=== PATIENT | male | born 1990 | race African-American/Black ===

== ENCOUNTER 2019-04-07 04:43 | Emergency (ER) | payer SELFPAY ==
[2019-04-07] MEDS ORDERED: KETOROLAC TROMETHAMINE 60 MG/2 ML SDV IM ONE (08:16)
--- NOTE | 2019-04-07 08:21 | ER Document Report ---
ED General - General Chief Complaint: Chest Wall Pain Stated Complaint: CHEST SWELLING Time Seen by Provider: 04/07/19 07:27 Mode of Arrival: Ambulatory TRAVEL OUTSIDE OF THE [place] IN LAST 30 DAYS: No - HPI Notes: The patient is a 28-year-old male presenting with a chief complaint of left anterolateral chest wall swelling and pain area Onset: Awakened with symptoms this morning. Duration: Swelling resolved. Pain persists. Quality: Sharp Location: Left anterolateral chest wall area Radiation: Left axilla Precipitating factors: Denies injury or unaccustomed activity. Relieving factors: Nothing tried at home. Severity: 2/10 intensity Pertinent prior history: Generally healthy male. Currently unemployed. Denies drug abuse. Denies skin rashes. No known history of cardiovascular disease. No personal nor family history of thromboembolic disease. No thromboembolic disease risk factors. Occasional cigarette smoker. No prior episodes of similar discomfort. - Related Data Allergies/Adverse Reactions: No Known Allergies Allergy (Unverified 04/07/19 05:11) Past Medical History - Social History Smoking Status: Current Every Day Smoker Chew tobacco use (# tins/day): No Frequency of alcohol use: Occasional Drug Abuse: None Family History: CAD Patient has suicidal ideation: No Patient has homicidal ideation: No Review of Systems - Review of Systems Notes: Constitutional: Negative for fever. HENT: Negative for sore throat. Eyes: Negative for visual changes. Cardiovascular: As per history of present illness Respiratory: Negative for shortness of breath. Gastrointestinal: Negative for abdominal pain, vomiting or diarrhea. Genitourinary: Negative for dysuria. Musculoskeletal: Negative for back pain. Skin: Negative for rash. Neurological: Negative for headaches, weakness or numbness. 10 point ROS negative except as marked above and in HPI. Physical Exam - Vital signs Vitals: Temp Pulse Resp BP Pulse Ox 98.2 F 104 H 17 150/90 H 100 04/07/19 04:48 04/07/19 04:48 04/07/19 04:48 04/07/19 04:48 04/07/19 04:48 Notes: GENERAL: Well-developed well-nourished appearing anxious and holding left anterior chest area. SKIN: Good turgor no rashes. HEAD: Normocephalic atraumatic. EYES: PERRLA. Conjunctivae and sclerae clear. EARS: CANALS AND TMS CLEAR. NOSE: CLEAR. MOUTH: Moist mucosa. Good dentition. No stridor or edema. No drooling. NECK: Supple. No masses or thyromegaly. No adenopathy. Carotids 2+ without bruits. No JVD. BACK: Symmetrical without tenderness. CHEST: Patient is exquisitely tender along left costochondral junctions. No visible swelling, crepitus, or redness. No palpable warmth. No palpable fluctuance. Respirations unlabored. Breath sounds clear and symmetrical. HEART: Regular rhythm. No murmur gallop or rub. ABDOMEN: Soft nontender without masses, organomegaly or rebound. Bowel sounds normally active. No bruits. GENITALIA: Deferred. EXTREMITIES: No edema. No calf tenderness. Cap refill less than 1.5 seconds. Dorsalis pedis and posterior tibial pulses 3+ and symmetrical. NEUROLOGICAL: GCS 15. Alert and oriented x3. Normal gait. Fluent speech. Cranial nerves II through XII intact. Sensorimotor and cerebellar normal. Normal tone. Psychiatric: Extremely anxious. Course - Re-evaluation Re-evalutation: I will obtain a chest x-ray PA and lateral to rule out pneumothorax. EKG has been reviewed and is remarkable for some movement artifact and sinus tachycardia with a rate of 102. Patient would appear to have a paucity of risk factors for coronary disease or thromboembolic disease. We will treat him symptomatically with ketorolac IM initially. 04/07/19 08:27 04/07/19 09:09 Chest x-ray reported as no active disease per radiologist. Images also reviewed by me. Pain is somewhat improved at this point. Anticipate discharge home. 04/07/19 09:38 Patient is pain-free at this time and appears stable for discharge with outpatient follow-up. - Vital Signs Vital signs: Temp Pulse Resp BP Pulse Ox 98.6 F 89 16 148/82 H 100 04/07/19 08:47 04/07/19 08:47 04/07/19 08:47 04/07/19 08:47 04/07/19 08:47 - Diagnostic Test Radiology reviewed: Image reviewed, Reports reviewed - EKG Interpretation by Me EKG shows normal: Sinus rhythm Rate: Tachycardia Discharge - Discharge Clinical Impression: Chest wall pain Condition: Stable Disposition: HOME, SELF-CARE Prescriptions: Cyclobenzaprine HCl [Flexeril 10 mg Tablet] 10 mg PO QHS PRN #15 tablet PRN Reason: Naproxen 500 mg PO BID PRN #14 tablet PRN Reason: Referrals: [facility] [Provider Group] - Follow up as needed
--- NOTE | 2019-04-07 08:40 | RADIOLOGY REPORT (SQ) ---
EXAM DESCRIPTION: CHEST 2 VIEWS COMPLETED DATE/TIME: 04/07/2019 8:29 am REASON FOR STUDY: CP COMPARISON: None. TECHNIQUE: Frontal and lateral radiographic views of the chest acquired. NUMBER OF VIEWS: Two view. LIMITATIONS: None. FINDINGS: LUNGS AND PLEURA: No opacities, masses or pneumothorax. No pleural effusion. MEDIASTINUM AND HILAR STRUCTURES: No masses or contour abnormalities. HEART AND VASCULAR STRUCTURES: Heart normal size. No evidence for failure. BONES: No acute findings. HARDWARE: None in the chest. OTHER: No other significant finding. IMPRESSION: NO SIGNIFICANT RADIOGRAPHIC FINDING IN THE CHEST. TECHNICAL DOCUMENTATION: JOB ID: [id number] [employer]- All Rights Reserved Reading location - IP/workstation name: [email or web address]
[2019-04-07 10:02] VITALS: BP 133/81
--- NOTE | 2019-04-08 21:39 | EKG REPORT ---
SEVERITY:- ABNORMAL ECG - SINUS TACHYCARDIA BIATRIAL ABNORMALITIES CONSIDER RIGHT VENTRICULAR HYPERTROPHY : Confirmed by: Otilio Ng MD 08-Apr-2019 21:39:16
== END 2019-04-07 10:01 | disposition home or self-care (01) ==
LOC: ER 04:43
DX: R07.89 Other chest pain (principal); F17.200 Nicotine dependence, unspecified, uncomplicated
CPT/HCPCS: 93005; 71046; 93010; J1885; 96372; 99285

== ENCOUNTER 2019-04-30 02:43 | Emergency (ER) | payer SELFPAY ==
--- NOTE | 2019-04-30 04:34 | ER Document Report ---
ED General - General Chief Complaint: Skin Problem Stated Complaint: RASH Time Seen by Provider: 04/30/19 04:06 TRAVEL OUTSIDE OF THE [place] IN LAST 30 DAYS: No - HPI Notes: 28-year-old male presents to the emergency department with multiple complaints. Patient presents complaining that he has a rash on his lower extremities bilaterally as well as on his hands. He also states that he feels like his skin is on fire and that his heart is racing and everything is moving around in a "funny way" in his stomach. After asking more questions about the patient's symptoms the patient admitted that he had been doing some "drug experimentation" with cocaine and meth. - Related Data Allergies/Adverse Reactions: No Known Allergies Allergy (Unverified 04/07/19 05:11) Past Medical History - General Information source: Patient - Social History Smoking Status: Current Every Day Smoker Frequency of alcohol use: Social Drug Abuse: Cocaine, Methamphetamine Family History: CAD Patient has suicidal ideation: No Patient has homicidal ideation: No Review of Systems - Review of Systems Constitutional: See HPI EENT: No symptoms reported Cardiovascular: See HPI Respiratory: No symptoms reported Gastrointestinal: See HPI Genitourinary: No symptoms reported Male Genitourinary: No symptoms reported Musculoskeletal: No symptoms reported Skin: See HPI Hematologic/Lymphatic: No symptoms reported Neurological/Psychological: No symptoms reported -: Yes All other systems reviewed and negative Physical Exam - Vital signs Vitals: Temp Pulse Resp BP Pulse Ox 98.1 F 105 H 18 130/80 H 97 04/30/19 02:54 04/30/19 02:54 04/30/19 02:54 04/30/19 02:54 04/30/19 02:54 - Notes Notes: PHYSICAL EXAMINATION: GENERAL: Well-appearing, well-nourished and in no acute distress. HEAD: Atraumatic, normocephalic. EYES: Pupils equal round and reactive to light, extraocular movements intact, sclera anicteric, conjunctiva are normal. ENT: nares patent, oropharynx clear without exudates. Moist mucous membranes. NECK: Normal range of motion, supple without lymphadenopathy LUNGS: Breath sounds clear to auscultation bilaterally and equal. No wheezes rales or rhonchi. HEART: Regular rate and rhythm without murmurs ABDOMEN: Soft, nontender, normoactive bowel sounds. No guarding, no rebound. No masses appreciated. EXTREMITIES: Normal range of motion, no pitting or edema. No cyanosis. NEUROLOGICAL: No focal neurological deficits. Moves all extremities spon taneously and on command. PSYCH: Odd affect. SKIN: Warm, Dry, normal turgor, no rashes or lesions noted. Course - Re-evaluation Re-evalutation: 04/30/19 04:36 Dangers of using cocaine and methamphetamine discussed with patient. - Vital Signs Vital signs: Temp Pulse Resp BP Pulse Ox 98.1 F 105 H 18 130/80 H 97 04/30/19 02:54 04/30/19 02:54 04/30/19 02:54 04/30/19 02:54 04/30/19 02:54 Discharge - Discharge Clinical Impression: Cocaine abuse, Methamphetamine abuse Condition: Good Disposition: HOME, SELF-CARE Instructions: Cocaine Abuse ([facility]) Additional Instructions: Return to the Emergency Department without delay if any worse. HOME CARE INSTRUCTIONS & INFORMATION: Thank you for choosing us for your medical needs. We hope you're satisfied with the care you received. After you leave, you must properly care for your problem and, at the same time, observe its progress. Any condition can change. Some illnesses can change rapidly over hours or days. If your condition worsens, return to the Emergency Department or see your physician promptly. ABOUT YOUR X-RAYS AND EKG'S: If you had an EKG or X-rays taken, they have been read by the Emergency Physician. The X-rays and EKG's will also be read by a Radiologist or Hand Marker within 24 hours. If discrepancies are noted, you will be notified by telephone. Please be certain the ED has a correct telephone number & address where you can be reached. Also, realize that some fractures or abnormalities do not show up on initial X-rays. If your symptoms continue, see your physician. ABOUT YOUR LABORATORY TEST: If you had laboratory tests, the results have been reviewed by the Emergency Physician. Some test results (for example cultures) may not be available for several days. You will be contacted if any test result shows you need additional treatment. Please be certain the ED has a correct telephone number and address where you can be reached. ABOUT YOUR MEDICATIONS: You will receive instructions on how to take your medicine on the prescription label you receive. Additional information may be provided by the Pharmacy. If you have questions afterwards, call the ED for clarification or further instructions. Some prescribed medications may cause drowsiness. Do not perform tasks such as driving a car or operating machinery without consulting your Pharmacist. If you feel you need a refill of pain medication, your condition will need re-evaluation. Please do not call for a refill of any medication. ABOUT YOUR SIGNATURE: Signature of this document acknowledges to followin. Understanding that you received emergency treatment and that you may be released before al medical problems are known or treated. Please be certain the ED has a correct phone number & address where you can be reached. 2. Acknowledgement that you will arrange for follow-up care as recommended. 3. Authorization for the Emergency Physician to provide information to your follow-up Physician in order to maximize your care. AT ANY TIME, IF YOUR SYMPTOMS CHANGE SIGNIFICANTLY OR WORSEN OR YOU DEVELOP NEW SYMPTOMS, RETURN TO THE EMERGENCY DEPARTMENT IMMEDIATELY FOR RE-EVALUATION. OUR GOAL IS TO PROVIDE EXCELLENT MEDICAL CARE! WE HOPE THAT WE HAVE MET YOUR EXPECTATIONS DURING YOUR EMERGENCY DEPARTMENT VISIT AND THAT YOU FEEL YOU HAVE RECEIVED EXCELLENT CARE! Referrals: FATIMAH FONTANA MD [HONORARY] - Follow up as needed
[2019-04-30] MEDS ORDERED: LORAZEPAM 1 MG TABLET PO ONE (04:38)
[2019-04-30 04:56] VITALS: BP 135/75
== END 2019-04-30 04:57 | disposition home or self-care (01) ==
LOC: ER 02:43
DX: F14.10 Cocaine abuse, uncomplicated (principal); F15.10 Other stimulant abuse, uncomplicated; F17.200 Nicotine dependence, unspecified, uncomplicated
CPT/HCPCS: 99282

== ENCOUNTER 2019-04-30 20:00 | Emergency (ER) | payer SELFPAY ==
[2019-04-30 20:34] VITALS: BP 146/95
[2019-04-30] MEDS ORDERED: DIPHENHYDRAMINE HCL 25 MG CAPSULE PO ONE (20:54)
[2019-04-30] MEDS ORDERED: DIPHENHYDRAMINE HCL 50 MG/ML VIAL IM ONE (20:57)
--- NOTE | 2019-04-30 20:57 | ER Document Report ---
ED Medical Screen (RME) - General Chief Complaint: Drug Abuse Stated Complaint: POSSIBLE DEHYDRATION Time Seen by Provider: 04/30/19 20:51 Mode of Arrival: Ambulatory Information source: Patient Notes: 28-year-old male with history of meth use presents emergency department with complaints of worms crawling out of his skin. Patient does have some hive E bumps noted to the right side of his abdomen. Patient is squeezing his belly. Patient also complains of cough shortness of breath. Denies fever vomiting diarrhea. Reports he last used meth on Tuesday. Girlfriend reports a little bit too hard I have greeted and performed a rapid initial assessment of this patient. A comprehensive ED assessment and evaluation of the patient, analysis of test results and completion of the medical decision making process will be conducted by additional ED providers. Dictation of this chart was performed using voice recognition software; therefore, there may be some unintended grammatical errors. TRAVEL OUTSIDE OF THE [place] IN LAST 30 DAYS: No - Related Data Allergies/Adverse Reactions: No Known Allergies Allergy (Unverified 04/07/19 05:11) Home Medications: Meth Past Medical History - Social History Drug Abuse: Methamphetamine Physical Exam - Vital signs Vitals: Temp Pulse Resp BP Pulse Ox 98.5 F 115 H 20 146/95 H 97 04/30/19 20:31 04/30/19 20:31 04/30/19 20:31 04/30/19 20:31 04/30/19 20:31 Course - Vital Signs Vital signs: Temp Pulse Resp BP Pulse Ox 98.5 F 115 H 20 146/95 H 97 04/30/19 20:31 04/30/19 20:31 04/30/19 20:31 04/30/19 20:31 04/30/19 20:31
== END 2019-04-30 21:25 | disposition left against medical advice (07) ==
LOC: ER 20:00
DX: L50.9 Urticaria, unspecified (principal); F15.10 Other stimulant abuse, uncomplicated; R05 Cough; R06.02 Shortness of breath; Z53.20 Procedure and treatment not carried out because of patient's decision for unspecified reasons
CPT/HCPCS: 99281

== ENCOUNTER 2019-05-12 21:22 | Emergency (ER) | payer SELFPAY ==
[2019-05-12] MEDS ORDERED: NORMAL SALINE 1000 ML 1,000 ML IV ONE (22:21)
--- NOTE | 2019-05-12 22:22 | ER Document Report ---
ED General - General Chief Complaint: Chest Pain Stated Complaint: CHEST PAIN Time Seen by Provider: 05/12/19 22:04 Notes: Patient is a 28-year-old male that comes emergency department for chief complaint of chest pain that started prior to arrival tonight. He states he felt a "pop" in the chest and felt pain "spreading out across the chest". He does state that the pain is worsened by movement. He denies injury. He denies cough, nausea/vomiting, fever/chills. He has no cigarettes and he admits to recreational drugs including cocaine. He denies any daily medications prescribed or any diagnosed medical history. TRAVEL OUTSIDE OF THE [place] IN LAST 30 DAYS: No - Related Data Allergies/Adverse Reactions: No Known Allergies Allergy (Unverified 04/07/19 05:11) Past Medical History - General Information source: Patient - Social History Smoking Status: Current Every Day Smoker Frequency of alcohol use: Occasional Drug Abuse: Cocaine, Methamphetamine Lives with: Spouse/Significant other Family History: CAD Patient has suicidal ideation: No Patient has homicidal ideation: No Review of Systems - Review of Systems Constitutional: No symptoms reported EENT: No symptoms reported Cardiovascular: See HPI Respiratory: No symptoms reported Gastrointestinal: No symptoms reported Genitourinary: No symptoms reported Male Genitourinary: No symptoms reported Musculoskeletal: No symptoms reported Skin: No symptoms reported Hematologic/Lymphatic: No symptoms reported Neurological/Psychological: See HPI Physical Exam - Vital signs Vitals: Temp Pulse Resp BP Pulse Ox 97.6 F 82 20 152/88 H 100 05/12/19 21:34 05/12/19 21:34 05/12/19 21:34 05/12/19 21:34 05/12/19 21:34 - Notes Notes: GENERAL: Alert, interacts well. No acute distress. HEAD: Normocephalic, atraumatic. EYES: Pupils equal, round, and reactive to light. Extraocular movements intact. ENT: Oral mucosa moist, tongue midline. Oropharynx unremarkable. Airway patent. NECK: Full range of motion. Supple. Trachea midline. LUNGS: Clear to auscultation bilaterally, no wheezes, rales, or rhonchi. No respiratory distress. Tenderness with palpation over the bilateral mid sternum in the place that patient indicates his pain. This is mild, there is no erythema, fluctuance, severe tenderness, or crepitus. HEART: Regular rate and rhythm. No murmur ABDOMEN: Soft, non-tender. Non-distended. Bowel sounds present in all 4 quadrants. GENITOURINARY: Deferred EXTREMITIES: Moves all 4 extremities spontaneously. No edema, normal radial and dorsalis pedis pulses bilaterally. No cyanosis. BACK: no cervical, thoracic, lumbar midline tenderness. No saddle anesthesia, normal distal neurovascular exam. Moves all extremities in full range of motion. NEUROLOGICAL: Alert and oriented x3. Normal speech. Cranial nerves II through XII grossly intact. PSYCH: Normal affect, normal mood. SKIN: Warm, dry, normal turgor. No rashes or lesions noted. Course - Re-evaluation Re-evalutation: Patient told me he used cocaine but denied amphetamines. Amphetamines are positive. Patient is not tachycardic, hypertensive, he is cooperative and not in distress. He does have some mild chest wall tenderness with palpation which is reproducible. EKG unremarkable, troponin negative, chest x-ray negative, CBC, chemistry nonspecific. Vital signs unremarkable. I do have a low suspicion of any intrathoracic etiology of patient's pain especially based on his work-up and his exam. On reevaluation I discussed patient's results, I discussed the extreme dangers of methamphetamines and cocaine and the likelihood that he will if he continues to use them. Patient states that he understands these are extremely dangerous and that he does not plan to continue using them. Discussed recommendations, follow-up, return precautions. Patient states appreciation and agreement. - Vital Signs Vital signs: Temp Pulse Resp BP Pulse Ox 98.4 F 98 16 164/92 H 100 05/13/19 00:33 05/13/19 00:33 05/13/19 00:33 05/13/19 00:33 05/13/19 00:33 - Laboratory Result Diagrams: 05/12/19 23:25 05/12/19 23:25 Laboratory results interpreted by me: 05/12/19 05/12/19 23:25 23:25 WBC 13.9 H Lymph % (Auto) 12.6 L Absolute Neuts (auto) 11.1 H Seg Neutrophils % 80.1 H Potassium 3.5 L Calcium 10.3 H Total Bilirubin 1.8 H AST 63 H Total Protein 8.5 H Discharge - Discharge Clinical Impression: Methamphetamine abuse, Chest wall pain Condition: Stable Disposition: HOME, SELF-CARE Additional Instructions: Your work-up today is reassuring, the pain in your chest appears from to be from the chest wall, you can take [id number] anti-inflammatories, apply heat to the area. Symptoms should resolve with time. Do not use methamphetamines, cocaine, or other illegal substances. These are extremely dangerous and will lead to your if you continue to use them. Follow-up with primary care. Return for any concerning symptoms including diffi culty breathing, fever, worsening pain, or any other concerning or worsening symptoms.
[2019-05-12 23:06] LABS: URINE BARBITURATES SCREEN NEGATIVE; URINE BENZODIAZEPINES SCREEN NEGATIVE; URINE COCAINE SCREEN NEGATIVE; URINE MARIJUANA (THC) SCREEN NEGATIVE; URINE METHADONE SCREEN NEGATIVE; URINE PHENCYCLIDINE SCREEN NEGATIVE
[2019-05-12 23:07] LABS: URINE AMPHETAMINES SCREEN UNCONFIRMED POSITIVE
--- NOTE | 2019-05-12 23:25 | RADIOLOGY REPORT (SQ) ---
EXAM: XR CHEST 2 VIEWS CLINICAL INDICATION: 28-year-old male with chest pain. TECHNIQUE: Two-view, PA and lateral projections of the chest were obtained. COMPARISON: 04/07/2019. FINDINGS: Unremarkable cardiac and mediastinal silhouette. Heart size is normal. Lungs are clear without focal opacity, pneumothorax or pleural effusions. The visualized bones are within normal limits. IMPRESSION: No acute cardiopulmonary abnormalities.
[2019-05-12 23:34] LABS: ABSOLUTE BASOPHILS # (AUTO) 0.1 10^3/uL (0.0-0.2); ABSOLUTE EOSINOPHILS # (AUTO) 0.1 10^3/uL (0.0-0.6); ABSOLUTE LYMPHOCYTES (AUTO) 1.7 10^3/uL (0.5-4.7); ABSOLUTE MONOCYTES (AUTO) 0.9 10^3/uL (0.1-1.4); ABSOLUTE NEUT (AUTO) 11.1 10^3/uL (1.7-8.2); BASOPHILS % (AUTO) 0.4 % (0-2); EOSINOPHILS % (AUTO) 0.4 % (0-6); LYMPHOCYTES % (AUTO) 12.6 % (13-45); MEAN CORPUSCULAR HEMOGLOBIN 28.7 pg (27.0-33.4); MEAN CORPUSCULAR HGB CONC 33.3 g/dL (32.0-36.0); MEAN CORPUSCULAR VOLUME 86 fl (80-97); MONOCYTES % (AUTO) 6.5 % (3-13); PLATELET COUNT 419 10^3/uL (150-450); RED BLOOD COUNT 4.87 10^6/uL (4.35-5.55); RED CELL DISTRIBUTION WIDTH 13.4 % (11.5-14.0); SEGMENTED NEUTROPHILS % (AUTO) 80.1 % (42-78); TOTAL CELLS COUNTED % (AUTO) 100 %; WHITE BLOOD COUNT 13.9 10^3/uL (4.0-10.5)
[2019-05-12 23:50] LABS: ALKALINE PHOSPHATASE 99 U/L (38-126); ANION GAP 14 (5-19); ASPARTATE AMINO TRANSFERASE 63 U/L (17-59); BILIRUBIN,DIRECT 0.3 mg/dL (0.0-0.4); BILIRUBIN,TOTAL 1.8 mg/dL (0.2-1.3); BLOOD UREA NITROGEN 13 mg/dL (7-20); CALCIUM 10.3 mg/dL (8.4-10.2); CARBON DIOXIDE 22 mmol/L (22-30); CHLORIDE 103 mmol/L (98-107); GLUCOSE 98 mg/dL (75-110); POTASSIUM 3.5 mmol/L (3.6-5.0); TOTAL PROTEIN 8.5 g/dL (6.3-8.2)
[2019-05-13 00:34] VITALS: BP 164/92
--- NOTE | 2019-05-13 12:06 | EKG REPORT ---
SEVERITY:- BORDERLINE ECG - SINUS ARRHYTHMIA, RATE 69-104 PROBABLE LEFT ATRIAL ABNORMALITY BORDERLINE PROLONGED QT INTERVAL : Confirmed by: Odalys Beaver MD 13-May-2019 12:05:54
== END 2019-05-13 00:38 | disposition home or self-care (01) ==
LOC: ER 21:22
DX: R07.89 Other chest pain (principal); F19.10 Other psychoactive substance abuse, uncomplicated; F14.90 Cocaine use, unspecified, uncomplicated; F17.200 Nicotine dependence, unspecified, uncomplicated
CPT/HCPCS: 93005; 99284; 96360; 36415; 85025; 80053; 84484; 80307; 71046; 93010; J7030